=== PATIENT | male | born 1985 | race Caucasian/White ===

== ENCOUNTER 2021-12-27 17:38 | Emergency (ER) | payer OTHER ==
[~2021-12-27] VITALS: Ht 170.2 cm; Wt 77.1 kg
[2021-12-27] MEDS ORDERED: LEVO75TA7 PO (17:52)
--- NOTE | 2021-12-27 17:58 | NUR ---
BITE WOUNDS WASHED AND IRRIGATED W/ NS. MEDICATED FOR PAIN PER MD ORDER.
--- NOTE | 2021-12-27 17:58 | NUR ---
DR PRESTON AT BEDSIDE FOR EVAL.
[2021-12-27] MEDS ORDERED: AMOXICILLIN-CLAVUL 875-125MG TABLET PO ONE (18:00)
[2021-12-27] MEDS ORDERED: HYDROMORPHONE 1 MG/1 ML DISP.SYRIN IM ONE (18:00)
[2021-12-27] MEDS ORDERED: LIDOCAINE HCL 1% 20 ML VIAL IJ ONE (18:00)
[2021-12-27] MEDS ORDERED: TDAP DIPH,PERTUSS,TET VAC/PF 0.5 ML DISP.SYRIN IM ONE ×2 (18:00)
[2021-12-27] MEDS ORDERED: AMOXICILLIN-CLAVUL 875-125MG TABLET ONE (18:00)
[2021-12-27] MEDS ORDERED: HYDROMORPHONE 1 MG/1 ML DISP.SYRIN ONE (18:08)
[2021-12-27] MEDS ORDERED: LIDOCAINE HCL 1% 20 ML VIAL ONE (18:08)
--- NOTE | 2021-12-27 18:43 | NUR ---
Xeroform dressing applied per provider order. Pt taught on proper wound care and states understanding instructions.
[2021-12-27] MEDS ORDERED: AMOX-430 PO (18:55)
[2021-12-27 19:03] VITALS: BP 132/74
== END 2021-12-27 19:03 | disposition home or self-care (01) ==
LOC: ER 17:38
DX: S61.412A Laceration without foreign body of left hand, initial encounter (principal); W54.0XXA Bitten by dog, initial encounter; Y93.83 Activity, rough housing and horseplay; Y92.89 Other specified places as the place of occurrence of the external cause; E03.9 Hypothyroidism, unspecified; Z79.890 Hormone replacement therapy
CPT/HCPCS: 12002; 73130; 90471; 90715; 96372; 99284; J1170; J3490; A4217; A4663